=== PATIENT | female | born 1970 | race African-American/Black ===

== ENCOUNTER 2017-07-20 16:26 | Emergency (ER) | payer BC, SELFPAY ==
[2017-07-20] MEDS ORDERED: Fluorescein Opthalmic Strip ONE (16:45)
== END 2017-07-20 17:07 | disposition home or self-care (01) ==
LOC: NAV ERS 16:26
DX: S05.02XA Injury of conjunctiva and corneal abrasion without foreign body, left eye, initial encounter (principal); I10 Essential (primary) hypertension; E11.9 Type 2 diabetes mellitus without complications; Z79.84 Long term (current) use of oral hypoglycemic drugs; X58.XXXA Exposure to other specified factors, initial encounter
CPT/HCPCS: 99283

== ENCOUNTER 2017-10-11 18:43 | Emergency (ER) | payer SELFPAY | END 2017-10-11 20:05 | disposition home or self-care (01) | LOC: NAV ERS 18:43 | DX: L02.415 Cutaneous abscess of right lower limb (principal); E11.9 Type 2 diabetes mellitus without complications; Z79.84 Long term (current) use of oral hypoglycemic drugs | CPT/HCPCS: 87070; 87077; 87205; 99283 ==

== ENCOUNTER 2017-11-01 15:27 | Emergency (ER) | payer SELFPAY | END 2017-11-01 16:38 | disposition home or self-care (01) | LOC: NAV ERS 15:27 | DX: H10.9 Unspecified conjunctivitis (principal); E11.9 Type 2 diabetes mellitus without complications; Z79.891 Long term (current) use of opiate analgesic; Z79.899 Other long term (current) drug therapy; Z79.84 Long term (current) use of oral hypoglycemic drugs | CPT/HCPCS: 99282 ==

== ENCOUNTER 2018-02-08 08:31 | Emergency (ER) | payer OTHER, SELFPAY | END 2018-02-08 08:58 | disposition home or self-care (01) | LOC: NAV ERS 08:31 | DX: J30.1 Allergic rhinitis due to pollen (principal); I10 Essential (primary) hypertension; E11.9 Type 2 diabetes mellitus without complications | CPT/HCPCS: 99283 ==

== ENCOUNTER 2018-04-18 04:45 | Emergency (ER) | payer OTHER ==
[2018-04-18] MEDS ORDERED: Benzonatate 100 MG CAP ONE ×2 (05:13→05:20)
[2018-04-18] MEDS ORDERED: AMOXicillin 250 MG CAP ONE (05:15)
== END 2018-04-18 05:30 | disposition home or self-care (01) ==
LOC: NAV ERS 04:45
DX: H66.91 Otitis media, unspecified, right ear (principal); J20.9 Acute bronchitis, unspecified; E11.9 Type 2 diabetes mellitus without complications; I10 Essential (primary) hypertension; Z79.84 Long term (current) use of oral hypoglycemic drugs; Z79.899 Other long term (current) drug therapy
CPT/HCPCS: 99283

== ENCOUNTER 2018-08-02 18:21 | Emergency (ER) | payer OTHER ==
[2018-08-02] MEDS ORDERED: Sulfameth/Trimethoprim DS 800-160mg TAB ONE (18:57)
== END 2018-08-02 19:03 | disposition home or self-care (01) ==
LOC: NAV ERS 18:21
DX: L02.416 Cutaneous abscess of left lower limb (principal); E11.9 Type 2 diabetes mellitus without complications; Z79.84 Long term (current) use of oral hypoglycemic drugs
CPT/HCPCS: 99282

== ENCOUNTER 2018-10-31 12:35 | Emergency (ER) | payer OTHER ==
[2018-10-31] MEDS ORDERED: Ibuprofen 200 MG TAB ONE (12:59)
[2018-10-31] MEDS ORDERED: Cyclobenzaprine 10 MG TAB ONE (13:04)
== END 2018-10-31 13:10 | disposition home or self-care (01) ==
LOC: NAV ERS 12:35
DX: M54.5 Low back pain (principal); E11.9 Type 2 diabetes mellitus without complications; I10 Essential (primary) hypertension; Z79.899 Other long term (current) drug therapy; Z79.4 Long term (current) use of insulin; V89.2XXA Person injured in unspecified motor-vehicle accident, traffic, initial encounter
CPT/HCPCS: 99283

== ENCOUNTER 2019-04-23 20:25 | Emergency (ER) | payer OTHER ==
[2019-04-23] MEDS ORDERED: Ibuprofen 200 MG TAB ONE (20:36)
--- NOTE | 2019-04-23 21:06 | RAD ---
TWO VIEW CHEST: 04/23/19 HISTORY: Upper respiratory infection. Lungs appear clear. No infiltrate. Heart and mediastinum appear normal. IMPRESSION: Unremarkable chest. POS: [id number]
[2019-04-23] MEDS ORDERED: Ondansetron ODT 4 MG TAB ONE (21:53)
== END 2019-04-23 22:07 | disposition home or self-care (01) ==
LOC: NAV ERS 20:25
DX: J06.9 Acute upper respiratory infection, unspecified (principal); E11.9 Type 2 diabetes mellitus without complications; I10 Essential (primary) hypertension; Z79.84 Long term (current) use of oral hypoglycemic drugs; Z79.899 Other long term (current) drug therapy
CPT/HCPCS: 71046; 87633; 87798; 87804; Q0162

== ENCOUNTER 2020-06-09 18:29 | Emergency (ER) | payer OTHER ==
[2020-06-09] MEDS ORDERED: Sulfameth/Trimethoprim DS 800-160mg TAB ONE (18:57)
[2020-06-09] MEDS ORDERED: Acetaminophen 500 MG TAB ONE (18:57)
== END 2020-06-09 19:03 | disposition home or self-care (01) ==
LOC: NAV ERS 18:29
DX: L03.221 Cellulitis of neck (principal); I10 Essential (primary) hypertension; E11.9 Type 2 diabetes mellitus without complications; E78.00 Pure hypercholesterolemia, unspecified; Z79.4 Long term (current) use of insulin; Z79.899 Other long term (current) drug therapy
CPT/HCPCS: 99283

== ENCOUNTER 2020-07-15 18:19 | Emergency (ER) | payer OTHER ==
[~2020-07-15 18:19] MED LIST: Iopamidol 370 76% 100 ML VIAL ONE
[2020-07-15] MEDS ORDERED: Ibuprofen 800 MG TAB ONE (19:33)
[2020-07-15] MEDS ORDERED: HYDROcodone/Acetaminophen 5/325 mg Tablet ONE (19:33)
== END 2020-07-15 19:20 | disposition home or self-care (01) ==
LOC: NAV ERS 18:19
DX: S80.02XA Contusion of left knee, initial encounter (principal); E11.9 Type 2 diabetes mellitus without complications; E78.00 Pure hypercholesterolemia, unspecified; I10 Essential (primary) hypertension; Z79.4 Long term (current) use of insulin; Z79.899 Other long term (current) drug therapy; W01.0XXA Fall on same level from slipping, tripping and stumbling without subsequent striking against object, initial encounter
CPT/HCPCS: Q9967

== ENCOUNTER 2021-11-17 11:56 | Emergency (ER) | payer SELFPAY ==
[2021-11-17] MEDS ORDERED: Ketorolac Tromethamine 60 MG/2 ML VIAL ONE (12:25)
[2021-11-17] MEDS ORDERED: Lidocaine 2% PF 100 mg/5 ml Syringe ONE (13:46)
== END 2021-11-17 14:45 | disposition home or self-care (01) ==
LOC: NAV ERS 11:56
DX: N76.4 Abscess of vulva (principal); E11.9 Type 2 diabetes mellitus without complications; E78.00 Pure hypercholesterolemia, unspecified; I10 Essential (primary) hypertension; Z79.4 Long term (current) use of insulin; Z79.899 Other long term (current) drug therapy
CPT/HCPCS: 56405; 87070; 87077; 87205; 96372; J1885; J2001

== ENCOUNTER 2022-05-03 17:07 | Outpatient (CLI) | payer BC | END 2022-05-03 17:08 | disposition home or self-care (01) | LOC: NAV RAD 17:07 | PROVIDERS: ATTEND Family Medicine | DX: G56.01 Carpal tunnel syndrome, right upper limb (principal); M25.462 Effusion, left knee; M17.12 Unilateral primary osteoarthritis, left knee ==

== ENCOUNTER 2022-07-18 20:49 | Emergency (ER) | payer BC ==
[2022-07-18] MEDS ORDERED: Sulfameth/Trimethoprim DS 800-160mg TAB ONE (21:50)
[2022-07-18] MEDS ORDERED: Cephalexin 250 MG CAP ONE (21:50)
== END 2022-07-18 22:05 | disposition home or self-care (01) ==
LOC: NAV ERS 20:49
DX: L03.115 Cellulitis of right lower limb (principal); I10 Essential (primary) hypertension; E11.9 Type 2 diabetes mellitus without complications; E78.00 Pure hypercholesterolemia, unspecified; Z79.4 Long term (current) use of insulin; Z79.899 Other long term (current) drug therapy; Z79.84 Long term (current) use of oral hypoglycemic drugs
CPT/HCPCS: 99283

== ENCOUNTER 2023-04-08 13:29 | Emergency (ER) | payer BC ==
[2023-04-08] MEDS ORDERED: Sodium Chloride 0.9% 1,000 ML ONE ×2 (14:47→19:55)
[2023-04-08] MEDS ORDERED: Ondansetron PF 4 MG/2 ML Vial ONE (14:47)
[2023-04-08 14:49] LABS: #Basophils 0.1 thou/uL (0.0-0.2); #Eosinphils 0.1 thou/uL (0.0-0.7); #Lymphocytes 3.8 thou/uL (1.20-3.40); #Monocytes 0.5 thou/uL (0.11-0.59); #Neutrophils 5.1 thou/uL (1.40-6.50); %Basophils 1.1 % (0.0-1.0); %Eosinophils 0.7 % (0.0-10.0); %Lymphocytes 39.8 % (21.0-51.0); %Monocytes 5.6 % (0.0-10.0); %Neutrophils 52.9 % (42.0-75.0); Hematocrit 38.6 % (36.0-47.0); Hemoglobin 12.6 g/dL (12.0-16.0); Mean Corpuscular HGB CONC 32.6 g/dL (32.0-36.0); Mean Corpuscular Hemoglobin 28.5 pg (27.0-31.0); Mean Corpuscular Volume 87.3 fl (78.0-98.0); Mean Platelet Volume 8.1 fL (7.4-10.4); Platelet Count 417 10x3/uL (130-400); RBC Distribution Width 13.2 % (11.5-14.5); Red Blood Cell (RBC) Count 4.43 mill/uL (4.20-5.40); White Blood Cell (WBC) Count 9.6 10x3/uL (4.8-10.8)
[2023-04-08 15:17] LABS: ALT (SGPT) 14 U/L (8-55); AST (SGOT) 13 U/L (5-34); Albumin 2.5 g/dL (3.5-5.0); Alkaline Phosphatase 105 U/L (40-110); Anion Gap 15 mmol/L (10-20); BUN (Urea Nitrogen) 16 mg/dL (9.8-20.1); Bilirubin, Total 0.5 mg/dL (0.2-1.2); Calc. Creatinine Clearance 0 mL/min (70-130); Calcium 8.7 mg/dL (7.8-10.44); Carbon Dioxide 24 mmol/L (22-29); Chloride 105 mmol/L (98-107); Estimated GFR 76; Globulin 3.8 g/dL (2.4-3.5); Glucose 180 mg/dL (70-105); Lipase 11 U/L (8-78); Potassium 4.1 mmol/L (3.5-5.1); Protein, Total 6.3 g/dL (6.0-8.3); Sodium 140 mmol/L (136-145)
[2023-04-08 15:18] LABS: Troponin I 0.016 ng/mL (< 0.028)
[2023-04-08] MEDS ORDERED: Metoprolol Tartrate 5 MG (5 mL) VIAL ONE (15:57)
[2023-04-08 16:14] LABS: Bilirubin Negative (Negative); Blood, Urine Trace (Negative); Clarity Clear (Clear); Glucose, Urine (Dipstick) >=1000 mg/dL (Negative); Ketone, Urine Negative (Negative); Leukocyte Negative (Negative); Nitrite Negative (Negative); Protein, Urine (Dipstick) > or equal to 300 mg/dL (Neg-Trace); Specific Gravity, Urine 1.025 (1.005-1.030); Urobilinogen 0.2 mg/dL (Less than 2); pH, Urine 7.5 (5.0-9.0)
[2023-04-08 16:31] LABS: CAUTI Indications for Culture Pelvic or flank pain; RBC/HPF 0-3 HPF (0-3); Squamous Epithelial 0-3 HPF (0-3); Urine Culture Reflex No No; WBC/HPF 0-3 HPF (0-3)
[2023-04-08] MEDS ORDERED: hydrALAZINE 20 MG/ML VIAL ONE (17:00)
[2023-04-08] MEDS ORDERED: Pantoprazole 40 MG VIAL ONE (17:28)
[2023-04-09] MEDS ORDERED: Acetaminophen 500 MG TAB ONE (00:25)
== END 2023-04-09 00:33 | disposition short-term general hospital (02) ==
LOC: NAV ERS 13:29
DX: I95.1 Orthostatic hypotension (principal); I10 Essential (primary) hypertension; E78.00 Pure hypercholesterolemia, unspecified; E11.9 Type 2 diabetes mellitus without complications; Z79.4 Long term (current) use of insulin
CPT/HCPCS: 71045; 74177; 80053; 81001; 83690; 84484; 85025; 93005; 96361; 96374; 96375; C9113; J0360; J2405; J7050; Q9967

== ENCOUNTER 2023-04-23 18:02 | Emergency (ER) | payer OTHER ==
[2023-04-23 18:56] LABS: ALT (SGPT) 14 U/L (8-55); AST (SGOT) 11 U/L (5-34); Albumin 2.9 g/dL (3.5-5.0); Alkaline Phosphatase 75 U/L (40-110); Anion Gap 14 mmol/L (10-20); BUN (Urea Nitrogen) 29 mg/dL (9.8-20.1); Bilirubin, Total 0.3 mg/dL (0.2-1.2); Calc. Creatinine Clearance 0 mL/min (70-130); Carbon Dioxide 25 mmol/L (22-29); Chloride 103 mmol/L (98-107); Estimated GFR 55; Globulin 3.8 g/dL (2.4-3.5); Glucose 221 mg/dL (70-105); Potassium 4.2 mmol/L (3.5-5.1); Protein, Total 6.7 g/dL (6.0-8.3); Sodium 138 mmol/L (136-145)
[2023-04-23 19:05] LABS: #Basophils 0.1 thou/uL (0.0-0.2); #Eosinphils 0.3 thou/uL (0.0-0.7); #Lymphocytes 2.9 thou/uL (1.20-3.40); #Monocytes 0.7 thou/uL (0.11-0.59); #Neutrophils 6.4 thou/uL (1.40-6.50); %Basophils 1.4 % (0.0-1.0); %Eosinophils 2.4 % (0.0-10.0); %Lymphocytes 27.7 % (21.0-51.0); %Monocytes 6.5 % (0.0-10.0); Mean Corpuscular HGB CONC 33.2 g/dL (32.0-36.0); Mean Corpuscular Hemoglobin 28.8 pg (27.0-31.0); Mean Corpuscular Volume 86.5 fl (78.0-98.0); Mean Platelet Volume 8.6 fL (7.4-10.4); Platelet Count 379 10x3/uL (130-400); RBC Distribution Width 12.6 % (11.5-14.5); Red Blood Cell (RBC) Count 3.81 mill/uL (4.20-5.40); White Blood Cell (WBC) Count 10.3 10x3/uL (4.8-10.8)
== END 2023-04-23 20:48 | disposition home or self-care (01) ==
LOC: NAV ERS 18:02
DX: R06.02 Shortness of breath (principal); I12.9 Hypertensive chronic kidney disease with stage 1 through stage 4 chronic kidney disease, or unspecified chronic kidney disease; E11.22 Type 2 diabetes mellitus with diabetic chronic kidney disease; N18.9 Chronic kidney disease, unspecified; N17.9 Acute kidney failure, unspecified; R80.9 Proteinuria, unspecified; Z79.4 Long term (current) use of insulin; Z79.899 Other long term (current) drug therapy
CPT/HCPCS: 71045; 71275; 80053; 83880; 85025; 85379; 93005; 96360